=== PATIENT | female | born 1950 | race Two or more races ===

== ENCOUNTER 2024-10-12 21:35 | Inpatient (IN) | payer MEDICARE, OTHER ==
[~2024-10-12] VITALS: Ht 157.5 cm; Wt 72.6 kg
[2024-10-12] MEDS ORDERED: LATA2.5D15 EACHEYE (22:07)
[2024-10-12] MEDS ORDERED: CALC-1276 PO (22:07)
[2024-10-12] MEDS ORDERED: ZOLP5TAB2 PO (22:07)
[2024-10-12] MEDS ORDERED: QUET25TA PO (22:07)
[2024-10-12] MEDS ORDERED: SENN8.6T19 PO (22:07)
[2024-10-12] MEDS ORDERED: DICL100G31 TP (22:07)
[2024-10-12] MEDS ORDERED: ASCO500C17 PO (22:07)
[2024-10-12] MEDS ORDERED: FAMO20TA8 PO (22:07)
[2024-10-12] MEDS ORDERED: MIRT7.5T10 PO (22:07)
[2024-10-12] MEDS ORDERED: ONDA-104 PO (22:07)
[2024-10-12] MEDS ORDERED: FERR-68 PO (22:07)
[2024-10-12] MEDS ORDERED: ASPI81TA31 PO (22:07)
[2024-10-12] MEDS ORDERED: ZINC220T4 PO (22:07)
[2024-10-12] MEDS ORDERED: NALO4SPR BNOSTRILS (22:07)
[2024-10-12] MEDS ORDERED: GABA300C PO (22:07)
[2024-10-12] MEDS ORDERED: DORZ10DR10 EACHEYE (22:07)
[2024-10-12] MEDS ORDERED: ACET325T53 PO (22:07)
[2024-10-12] MEDS ORDERED: DOCU100C36 PO (22:07)
[2024-10-12] MEDS ORDERED: OXYC10TA49 PO (22:07)
[2024-10-12] MEDS ORDERED: OXYB5TAB16 PO (22:07)
[2024-10-12] MEDS ORDERED: POLY119P17 PO (22:07)
[2024-10-12 22:44] LABS: PLATELET COUNT (AUTO) 159 K/uL (179-408); RED CELL DISTRIBUTION WIDTH 15.6 % (12.3-17.7); WHITE BLOOD COUNT (AUTO) 6.4 K/uL (3.8-11.8)
[2024-10-12 22:51] LABS: RED BLOOD CELL COUNT(AUTO) 2.48 MIL/uL (3.63-4.92)
[2024-10-12 22:58] LABS: CREATININE 0.4 mg/dL (0.6-1.3); SODIUM SERUM 139 mmol/L (136-145); UREA NITROGEN, BLOOD 8 mg/dL (7-18)
[2024-10-12 23:12] LABS: ASPARTATE AMINOTRANSFERASE 34 U/L (15-37); NT-PRO BNP 1888 pg/mL (0-125); TOTAL PROTEIN, SERUM 5.8 g/dL (6.4-8.2)
[2024-10-12] MEDS: IV NORMAL SALINE 1000 ML BAG IV ONE (23:15)
[2024-10-12] MEDS ORDERED: MEROPENEM 1GM/NS 100ML IVPB **ER PYXIS ONLY IV ONE (23:17)
[2024-10-12] MEDS: MEROPENEM 1,000 MG in IV NORMAL SALINE 100 ML IV ONE (23:21)
[2024-10-13] VITALS (13 sets, daily range): BP systolic 97–150; BP diastolic 48–83; TEMP 97.2–102.4; O2SAT 89–100
[2024-10-13] MEDS ORDERED: MAGNESIUM HYDROXIDE 30 ML LIQUID UDC PO PRN (00:15)
[2024-10-13] MEDS ORDERED: REMEDY ESSENTIAL ZINC PASTE 113 GM TP PRN (00:15)
[2024-10-13] MEDS ORDERED: SENNOSIDES 1 TABLET PO PRN (00:15)
[2024-10-13] MEDS ORDERED: DEXTROSE 50% 50 ML DISP.SYRIN IV PRN ×2 (00:15→09:30)
[2024-10-13 05:09] LABS: *BILIRUBIN,URIN NEGATIVE (NEGATIVE); *BLOOD, URINE 2+ (NEGATIVE); *CLARITY,URINE CLOUDY (CLEAR); *COLOR,URINE YELLOW (YELLOW); *KETONES,URINE NEGATIVE (NEGATIVE); *PROTEIN,URINE TRACE (NEGATIVE); *UROBILINOGEN,URINE 0.2 E.U./dl (NORMAL); LEUKOCYTE ESTERASE ,URINE 3+ (NEGATIVE); NITRITE, URINE NEGATIVE (NEGATIVE); UGLUCOSE NEGATIVE (NEGATIVE)
[2024-10-13 05:10] LABS: PLATELET COUNT (AUTO) 244 K/uL (179-408); RED BLOOD CELL COUNT(AUTO) 3.19 MIL/uL (3.63-4.92); RED CELL DISTRIBUTION WIDTH 15.9 % (12.3-17.7); WHITE BLOOD COUNT (AUTO) 13.8 K/uL (3.8-11.8)
[2024-10-13 05:23] LABS: IRON, SERUM 21 ug/dL (50-175)
[2024-10-13] MEDS ORDERED: MEROPENEM 1 G in IV NORMAL SALINE 100 ML IV SCH (06:00)
[2024-10-13 06:02] LABS: SQUAMOUS EPITHELIAL CELL,UR FEW /HPF (NONE SEEN)
[2024-10-13] MEDS: HYDROMORPHONE 1 MG/1 ML DISP.SYRIN IV ONE (06:07)
[2024-10-13 06:22] LABS: CREATININE 0.6 mg/dL (0.6-1.3); SODIUM SERUM 142 mmol/L (136-145); UREA NITROGEN, BLOOD 6 mg/dL (7-18)
[2024-10-13] MEDS: ACETAMINOPHEN 325 MG TABLET PO PRN (07:43)
[2024-10-13] MEDS: INSULIN REGULAR, HUMAN 1000 UNIT/10 ML VIAL SQ PRN ×2 (07:49→17:26)
[2024-10-13] MEDS: BLOOD SUGAR DIAGNOSTIC 1 EACH STRIP VI SCH ×2 (07:52→12:00)
[2024-10-13] MEDS: VANCOMYCIN IV 1,000 MG in IV NORMAL SALINE 250 ML IV ONE (08:03)
[2024-10-13] MEDS: ACETAMINOPHEN 650 MG SUPP.RECT RC PRN (08:26)
[2024-10-13] MEDS ORDERED: DOCUSATE SODIUM 100 MG CAPSULE PO SCH (09:00)
[2024-10-13] MEDS ORDERED: ASCORBIC ACID 500 MG TABLET PO SCH (09:00)
[2024-10-13] MEDS ORDERED: ZINC SULFATE 220 MG CAPSULE PO SCH (09:00)
[2024-10-13] MEDS ORDERED: GABAPENTIN 300 MG CAPSULE PO SCH (09:00)
[2024-10-13] MEDS ORDERED: ASCORBIC ACID PO SCH (09:00)
[2024-10-13] MEDS ORDERED: QUETIAPINE FUMARATE 25 MG TABLET PO SCH (09:00)
[2024-10-13] MEDS ORDERED: CALCIUM CARB/VITAMIN D 500MG-200UNITS TABLET PO SCH (09:00)
[2024-10-13] MEDS ORDERED: OXYBUTYNIN CHLORIDE 5 MG TABLET PO SCH (09:00)
[2024-10-13] MEDS: MEROPENEM 1 G in IV NORMAL SALINE 100 ML IV SCH (09:21)
[2024-10-13 09:59] LABS: ABG BASE EXCESS 2.2 mmol/L (-2.0-3.0); ABG HCO3 25.4 mmol/L (21.0-28.0); ABG PCO2 34.1 mmHg (32.0-45.0); ABG PH 7.490 (7.350-7.450); ABG PO2 101.8 mmHg (83.0-108.0); ABG SITE RIGHT BRACHIAL; ABG TOTAL HEMOGLOBIN 9.2 G/dL (12.0-16.0); AaDO2 98.1 mmHg; FIO2 28.0 %; FLOW, BLOOD GAS 2.00 L/min (0.00-30.00)
[2024-10-13] MEDS: IV D5 1/2 NS 1000 ML 1,000 ML IV PRN (10:10)
[2024-10-13] MEDS: DORZOLAMIDE 2% OPHT DROP 10 ML BOTTLE EACHEYE SCH (10:12)
[2024-10-13] MEDS: MAGNESIUM SULFATE/D5W 100 ML IV SCH (15:00)
[2024-10-13] MEDS: LATANOPROST OPHT DROP 2.5 ML BOTTLE EACHEYE SCH (17:20)
[2024-10-13] MEDS ORDERED: MIRTAZAPINE 15 MG TABLET PO SCH (18:00)
[2024-10-13] MEDS ORDERED: FAMOTIDINE 20 MG TABLET PO SCH (21:00)
[2024-10-14] VITALS (8 sets, daily range): BP systolic 108–138; BP diastolic 52–66; TEMP 97.5–98.8; O2SAT 98–100
[2024-10-14] MEDS: VANCOMYCIN IV 1,000 MG in IV DEXTROSE 5% 250 ML IV SCH (02:27)
[2024-10-14 04:39] LABS: PLATELET COUNT (AUTO) 153 K/uL (179-408); RED BLOOD CELL COUNT(AUTO) 2.53 MIL/uL (3.63-4.92); RED CELL DISTRIBUTION WIDTH 15.6 % (12.3-17.7); WHITE BLOOD COUNT (AUTO) 8.4 K/uL (3.8-11.8)
[2024-10-14 04:57] LABS: ASPARTATE AMINOTRANSFERASE 35 U/L (15-37); CREATININE 0.3 mg/dL (0.6-1.3); SODIUM SERUM 138 mmol/L (136-145); TOTAL PROTEIN, SERUM 5.4 g/dL (6.4-8.2); UREA NITROGEN, BLOOD 5 mg/dL (7-18)
[2024-10-14] MEDS: POTASSIUM CHLORIDE 50 ML IV SCH (10:12)
[2024-10-14] MEDS: ONDANSETRON 4 MG/2 ML VIAL IV PRN (18:09)
[2024-10-14] MEDS: BISACODYL 5 MG TABLET.DR PO PRN (22:20)
[2024-10-15] VITALS (7 sets, daily range): BP systolic 116–134; BP diastolic 45–98; TEMP 98.2–99.1; O2SAT 97–100
[2024-10-15 05:07] LABS: PLATELET COUNT (AUTO) 174 K/uL (179-408); RED BLOOD CELL COUNT(AUTO) 2.73 MIL/uL (3.63-4.92); RED CELL DISTRIBUTION WIDTH 16.0 % (12.3-17.7); WHITE BLOOD COUNT (AUTO) 8.3 K/uL (3.8-11.8)
[2024-10-15 05:19] LABS: CREATININE 0.4 mg/dL (0.6-1.3); SODIUM SERUM 138 mmol/L (136-145); UREA NITROGEN, BLOOD 2 mg/dL (7-18)
[2024-10-15] MEDS ORDERED: SIMETHICONE 40 MG/0.6 ML, 30ML BOTTLE PO PRN (10:00)
[2024-10-15] MEDS: LACTULOSE 20 G/30 ML LIQUID UDC PO PRN (11:44)
[2024-10-15] MEDS ORDERED: VANCOMYCIN IV 1,000 MG in IV DEXTROSE 5% 250 ML IV SCH (14:00)
[2024-10-16 04:00] VITALS: BP 147/51; TEMP 98.9; O2SAT 100
[2024-10-16 06:59] LABS: PLATELET COUNT (AUTO) 174 K/uL (179-408); RED BLOOD CELL COUNT(AUTO) 2.77 MIL/uL (3.63-4.92); RED CELL DISTRIBUTION WIDTH 15.3 % (12.3-17.7); WHITE BLOOD COUNT (AUTO) 6.6 K/uL (3.8-11.8)
[2024-10-16 07:20] LABS: CREATININE 0.4 mg/dL (0.6-1.3); SODIUM SERUM 139 mmol/L (136-145); UREA NITROGEN, BLOOD 3 mg/dL (7-18)
[2024-10-16] MEDS: POTASSIUM CHLORIDE 20 MEQ POWDER PACKET PO ONE (10:41)
[2024-10-16] MEDS: MAGNESIUM OXIDE 400 MG TABLET PO ONE (10:42)
[2024-10-16 11:28] VITALS: BP 128/46; TEMP 97.6; O2SAT 98
[2024-10-16 16:11] VITALS: BP 109/54; TEMP 98.3; O2SAT 98
[2024-10-16] MEDS: NEUTRA PHOS PACKET PO ONE (16:11)
[2024-10-16 19:52] VITALS: BP 123/58; TEMP 98.4; O2SAT 98
[2024-10-16] MEDS: SIMETHICONE 80 MG TAB.CHEW PO PRN (21:00)
[2024-10-16] MEDS: OLANZAPINE 10 MG VIAL IM PRN (23:15)
[2024-10-17 05:00] VITALS: BP 130/54; TEMP 98.4; O2SAT 100
[2024-10-17 06:42] LABS: PLATELET COUNT (AUTO) 162 K/uL (179-408); RED BLOOD CELL COUNT(AUTO) 2.79 MIL/uL (3.63-4.92); RED CELL DISTRIBUTION WIDTH 15.4 % (12.3-17.7); WHITE BLOOD COUNT (AUTO) 5.2 K/uL (3.8-11.8)
[2024-10-17 06:56] LABS: CREATININE 0.2 mg/dL (0.6-1.3); SODIUM SERUM 140 mmol/L (136-145); UREA NITROGEN, BLOOD 4 mg/dL (7-18)
[2024-10-17] MEDS ORDERED: LEVO500T90 PO (09:24)
[2024-10-17 11:19] VITALS: BP 136/54; TEMP 98.6; O2SAT 97
== END 2024-10-17 11:59 | DRG 871 ==
LOC: ER 22:10 → CCU 10-13 00:12 → MEDSURG3 10-15 12:00
PROVIDERS: ATTEND Internal Medicine
PROC: 05HC33Z Insertion of Infusion Device into Left Basilic Vein, Percutaneous Approach (ICD-10-PCS; principal; 2024-10-13)
DX: A41.50 Gram-negative sepsis, unspecified (principal); E43 Unspecified severe protein-calorie malnutrition; G92.8 Other toxic encephalopathy; J69.0 Pneumonitis due to inhalation of food and vomit; N10 Acute pyelonephritis; N39.0 Urinary tract infection, site not specified; Z16.24 Resistance to multiple antibiotics; C22.9 Malignant neoplasm of liver, not specified as primary or secondary; J91.8 Pleural effusion in other conditions classified elsewhere; J98.11 Atelectasis; B96.89 Other specified bacterial agents as the cause of diseases classified elsewhere; R65.20 Severe sepsis without septic shock; B96.1 Klebsiella pneumoniae [K. pneumoniae] as the cause of diseases classified elsewhere; Z79.899 Other long term (current) drug therapy; Z79.82 Long term (current) use of aspirin; E11.42 Type 2 diabetes mellitus with diabetic polyneuropathy; E11.22 Type 2 diabetes mellitus with diabetic chronic kidney disease; I12.9 Hypertensive chronic kidney disease with stage 1 through stage 4 chronic kidney disease, or unspecified chronic kidney disease; K57.30 Diverticulosis of large intestine without perforation or abscess without bleeding; E88.09 Other disorders of plasma-protein metabolism, not elsewhere classified; E78.5 Hyperlipidemia, unspecified; Z86.73 Personal history of transient ischemic attack (TIA), and cerebral infarction without residual deficits; Z74.01 Bed confinement status; Z68.29 Body mass index [BMI] 29.0-29.9, adult; E66.9 Obesity, unspecified; D50.9 Iron deficiency anemia, unspecified; K74.60 Unspecified cirrhosis of liver; Z92.21 Personal history of antineoplastic chemotherapy; N18.30 Chronic kidney disease, stage 3 unspecified
CPT/HCPCS: 36415; 36600; 70450; 71045; 82746; 82803; 83550; 83605; 83735; 84100; 84443; 85025; 85730; 87040; 87077; 87086; 93005; A4606; C1758; G0378; J1171; J1815; J2185; J2358; J2405; J3370; J3475; J3480; J7040; J7042; J7050

== ENCOUNTER 2024-12-07 20:57 | Inpatient (IN) | payer MEDICARE, OTHER ==
[~2024-12-07] VITALS: Ht 157.5 cm; Wt 53.7 kg
[~2024-12-07 20:57] MED LIST: ACET325T53 PO; ASCO500C17 PO; ASPI81TA31 PO; CALC-1276 PO; DICL100G31 TP; DOCU100C36 PO; DORZ10DR10 EACHEYE; FAMO20TA8 PO; FERR-68 PO; GABA300C PO; LATA2.5D15 EACHEYE; LEVO500T90 PO; MIRT7.5T10 PO; NALO4SPR BNOSTRILS; ONDA-104 PO; OXYB5TAB16 PO; OXYC10TA49 PO; POLY119P17 PO; QUET25TA PO; SENN8.6T19 PO; ZINC220T4 PO; ZOLP5TAB2 PO
[2024-12-07 21:31] LABS: PLATELET COUNT (AUTO) 76 K/uL (179-408); RED BLOOD CELL COUNT(AUTO) 3.84 MIL/uL (3.63-4.92); RED CELL DISTRIBUTION WIDTH 13.7 % (12.3-17.7); WHITE BLOOD COUNT (AUTO) 6.5 K/uL (3.8-11.8)
[2024-12-07 21:45] LABS: *BILIRUBIN,URIN NEGATIVE (NEGATIVE); *BLOOD, URINE 1+ (NEGATIVE); *CLARITY,URINE CLOUDY (CLEAR); *COLOR,URINE YELLOW (YELLOW); *KETONES,URINE NEGATIVE (NEGATIVE); *PROTEIN,URINE 1+ (NEGATIVE); *UROBILINOGEN,URINE 0.2 E.U./dl (NORMAL); LEUKOCYTE ESTERASE ,URINE 1+ (NEGATIVE); NITRITE, URINE POSITIVE (NEGATIVE); UGLUCOSE 2+ (NEGATIVE)
[2024-12-07] MEDS ORDERED: CEFT1VIA15 IV (21:48)
[2024-12-07] MEDS ORDERED: BISA10SU61 RC (21:48)
[2024-12-07] MEDS ORDERED: NA P133E8 RC (21:48)
[2024-12-07 21:50] LABS: ASPARTATE AMINOTRANSFERASE 23 U/L (15-37); CREATININE 1.0 mg/dL (0.6-1.3); SODIUM SERUM 129 mmol/L (136-145); TOTAL PROTEIN, SERUM 7.3 g/dL (6.4-8.2); UREA NITROGEN, BLOOD 30 mg/dL (7-18)
[2024-12-07 21:52] LABS: LACTIC ACID 2.9 mmol/L (0.4-2.0)
[2024-12-07 21:55] LABS: SQUAMOUS EPITHELIAL CELL,UR FEW /HPF (NONE SEEN)
[2024-12-07] MEDS: CEFEPIME (MAXEPIME) 1 G in IV DEXTROSE 5% 50 ML IV ONE (21:59)
[2024-12-07] MEDS: IV LACTATED RINGERS SOLUTION 1,000 ML BAG IV ONE (21:59)
[2024-12-07] MEDS ORDERED: CEFEPIME HCL 1 G VIAL ONE (21:59)
[2024-12-07] MEDS ORDERED: NOREPINEPHRINE 8MG/NS 250ML 250 ML IV ONE (23:02)
[2024-12-07] MEDS: NOREPINEPHRINE 8MG/NS 250ML 250 ML IV ONE (23:18)
[2024-12-08] VITALS (84 sets, daily range): BP systolic 82–162; BP diastolic 44–78; TEMP 97.8–98.8; O2SAT 96–100
[2024-12-08] MEDS ORDERED: VANCOMYCIN IV 200 ML ONE (00:01)
[2024-12-08] MEDS: VANCOMYCIN IV 1,000 MG in IV DEXTROSE 5% 250 ML IV ONE (00:11)
[2024-12-08 00:14] LABS: CREATININE 0.9 mg/dL (0.6-1.3); SODIUM SERUM 131 mmol/L (136-145); UREA NITROGEN, BLOOD 28 mg/dL (7-18)
[2024-12-08] MEDS: ONDANSETRON 4 MG/2 ML VIAL IV ONE (00:30)
[2024-12-08] MEDS: MORPHINE SULFATE 2 MG/1 ML DISP.SYRIN IV ONE (00:30)
[2024-12-08] MEDS: IV LACTATED RINGERS SOLUTION 1,000 ML BAG IV ONE (00:41)
[2024-12-08] MEDS ORDERED: CEFEPIME (MAXEPIME) 2 G in IV DEXTROSE 5% 100 ML IV SCH (01:30)
[2024-12-08] MEDS ORDERED: DEXTROSE 50% 50 ML DISP.SYRIN IV PRN (02:00)
[2024-12-08] MEDS ORDERED: IOHEXOL 300MG/ML 100 ML INFUS..BTL ONE (02:49)
[2024-12-08] MEDS ORDERED: SWABABLE VALVE TRANSFER SET EA MC ONE (02:49)
[2024-12-08] MEDS ORDERED: IV NORMAL SALINE 250 ML IV ONE (02:50)
[2024-12-08 03:07] LABS: CREATININE 1.0 mg/dL (0.6-1.3); SODIUM SERUM 129 mmol/L (136-145); UREA NITROGEN, BLOOD 24 mg/dL (7-18)
[2024-12-08] MEDS ORDERED: CEFEPIME HCL 2 GM in IV DEXTROSE 5% 100 ML IV SCH (03:30)
[2024-12-08] MEDS: BLOOD SUGAR DIAGNOSTIC 1 EACH STRIP VI SCH (03:40)
[2024-12-08] MEDS: IV NS 1000 ML 1,000 ML IV SCH (04:00)
[2024-12-08 04:19] LABS: PLATELET COUNT (AUTO) 86 K/uL (179-408); RED BLOOD CELL COUNT(AUTO) 3.52 MIL/uL (3.63-4.92); RED CELL DISTRIBUTION WIDTH 13.6 % (12.3-17.7); WHITE BLOOD COUNT (AUTO) 9.5 K/uL (3.8-11.8)
[2024-12-08] MEDS ORDERED: INSULIN REGULAR, HUMAN 1000 UNIT/10 ML VIAL ONE (04:44)
[2024-12-08] MEDS: NOREPINEPHRINE BITARTRATE 8 MG in IV NORMAL SALINE 250 ML IV PRN (07:15)
[2024-12-08] MEDS: QUETIAPINE FUMARATE 25 MG TABLET PO SCH (09:19)
[2024-12-08] MEDS: ASCORBIC ACID 500 MG TABLET PO SCH (09:19)
[2024-12-08] MEDS: PANTOPRAZOLE SODIUM 40 MG TABLET.DR PO SCH (09:19)
[2024-12-08] MEDS: FERROUS SULFATE 325 MG TABEC PO SCH (09:19)
[2024-12-08] MEDS: GABAPENTIN 300 MG CAPSULE PO SCH (09:20)
[2024-12-08] MEDS: OXYBUTYNIN CHLORIDE 5 MG TABLET PO SCH (09:23)
[2024-12-08] MEDS: CALCIUM CARB/VITAMIN D 500MG-200UNITS TABLET PO SCH (09:24)
[2024-12-08] MEDS: DORZOLAMIDE 2% OPHT DROP 10 ML BOTTLE EACHEYE SCH (09:25)
[2024-12-08] MEDS: INSULIN REGULAR, HUMAN 1000 UNIT/10 ML VIAL SQ PRN (09:38)
[2024-12-08] MEDS: CEFEPIME HCL 2 GM in IV DEXTROSE 5% 100 ML IV SCH (09:41)
[2024-12-08] MEDS: MAGNESIUM OXIDE 400 MG TABLET PO ONE (14:45)
[2024-12-08 15:18] LABS: *BILIRUBIN,URIN NEGATIVE (NEGATIVE); *CLARITY,URINE CLEAR (CLEAR); *COLOR,URINE YELLOW (YELLOW); *KETONES,URINE NEGATIVE (NEGATIVE); *PROTEIN,URINE NEGATIVE (NEGATIVE); *UROBILINOGEN,URINE 0.2 E.U./dl (NORMAL); LEUKOCYTE ESTERASE ,URINE 1+ (NEGATIVE); NITRITE, URINE NEGATIVE (NEGATIVE); UGLUCOSE TRACE (NEGATIVE)
[2024-12-08 15:19] LABS: *BLOOD, URINE TRACE (NEGATIVE)
[2024-12-08 15:20] LABS: SQUAMOUS EPITHELIAL CELL,UR FEW /HPF (NONE SEEN)
[2024-12-08 15:26] LABS: *CREATININE,URINE < 13.0 mg/dL (30-125); *SODIUM RNDM,URINE 56 mmol/L (40-220); *URINE TOTAL PROTEIN RANDOM 18.3 mg/dL (<150/24HR)
[2024-12-08] MEDS ORDERED: CEFEPIME HCL 1 G VIAL IM SCH (21:00)
[2024-12-08] MEDS ORDERED: LATANOPROST OPHT DROP 2.5 ML BOTTLE EACHEYE SCH (21:00)
[2024-12-08] MEDS: MIRTAZAPINE 15 MG TABLET PO SCH (21:02)
[2024-12-08] MEDS: LATANOPROST OPHT DROP 2.5 ML BOTTLE EACHEYE SCH (21:23)
[2024-12-08] MEDS: DOCUSATE SODIUM 100 MG CAPSULE PO SCH (21:35)
[2024-12-08] MEDS: CEFEPIME (MAXEPIME) 1 G in IV DEXTROSE 5% 50 ML IV ONE (21:46)
[2024-12-09] VITALS (60 sets, daily range): BP systolic 95–140; BP diastolic 46–91; TEMP 97.2–98.6; O2SAT 96–100
[2024-12-09] MEDS ORDERED: VANCOMYCIN IV 1,000 MG in IV DEXTROSE 5% 250 ML IV SCH
[2024-12-09] MEDS: VANCOMYCIN IV 1,000 MG in IV DEXTROSE 5% 250 ML IV SCH (02:58)
[2024-12-09 05:08] LABS: HEPATITIS B CORE AB, IgM Negative (Negative); HEPATITIS B CORE AB, TOTAL Negative (Negative); HEPATITIS B SURFACE AB, QUAL Non Reactive (.); HEPATITIS B SURFACE AG Negative (Negative); HEPATITIS C VIRUS ANTIBODY Non Reactive (Non Reactive)
[2024-12-09 05:41] LABS: ASPARTATE AMINOTRANSFERASE 17 U/L (15-37); CREATININE 0.4 mg/dL (0.6-1.3); SODIUM SERUM 140 mmol/L (136-145); TOTAL PROTEIN, SERUM 5.7 g/dL (6.4-8.2); UREA NITROGEN, BLOOD 12 mg/dL (7-18)
[2024-12-09] MEDS: POTASSIUM CHLORIDE 50 ML IV SCH (08:17)
[2024-12-09] MEDS: CALCIUM CARB/VITAMIN D 500MG-200UNITS TABLET PO SCH (08:24)
[2024-12-09] MEDS: CEFEPIME (MAXEPIME) 1 G in IV DEXTROSE 5% 50 ML IV SCH (11:25)
[2024-12-09] MEDS: VANCOMYCIN HCL 750 MG in IV DEXTROSE 5% 250 ML IV SCH (17:57)
[2024-12-09] MEDS: MORPHINE SULFATE 2 MG/1 ML DISP.SYRIN IV PRN (19:59)
[2024-12-09] MEDS: QUETIAPINE FUMARATE 25 MG TABLET PO SCH (21:34)
[2024-12-10] VITALS (21 sets, daily range): BP systolic 98–146; BP diastolic 46–68; TEMP 97.6–97.9; O2SAT 72–100
[2024-12-10 04:59] LABS: PLATELET COUNT (AUTO) 80 K/uL (179-408); RED BLOOD CELL COUNT(AUTO) 3.27 MIL/uL (3.63-4.92); RED CELL DISTRIBUTION WIDTH 13.6 % (12.3-17.7); WHITE BLOOD COUNT (AUTO) 3.0 K/uL (3.8-11.8)
[2024-12-10 05:20] LABS: ASPARTATE AMINOTRANSFERASE 17 U/L (15-37); CREATININE 0.4 mg/dL (0.6-1.3); SODIUM SERUM 145 mmol/L (136-145); TOTAL PROTEIN, SERUM 5.8 g/dL (6.4-8.2); UREA NITROGEN, BLOOD 9 mg/dL (7-18)
[2024-12-10 05:57] LABS: BASOPHILS % (MANUAL) 1 % (0-2); EOSINOPHILS % (MANUAL) 3 % (0-8); LYMPHOCYTES % (MANUAL) 23 % (20-40); MONOCYTES % (MANUAL) 12 % (2-10); NEUTROPHILS % (MANUAL) 61 % (42-75)
[2024-12-10 05:58] LABS: PLATELET ESTIMATE DECREASED
[2024-12-10] MEDS: POTASSIUM CHLORIDE 20 MEQ POWDER PACKET PO ONE (11:15)
[2024-12-10] MEDS: MAGNESIUM OXIDE 400 MG TABLET PO ONE (11:15)
[2024-12-10 19:06] LABS: *HCV QUANT HCV Not Detected IU/mL (.)
[2024-12-11] MEDS ORDERED: ACETAMINOPHEN 325 MG TABLET PO PRN (00:30)
[2024-12-11 07:54] VITALS: BP 140/50; TEMP 97.9; O2SAT 100
[2024-12-11 11:46] VITALS: BP 157/49; TEMP 97.6; O2SAT 100
[2024-12-11 15:46] VITALS: BP 156/66; TEMP 97.8; O2SAT 100
[2024-12-11] MEDS: BISACODYL 10 MG SUPP.RECT RC PRN (16:58)
[2024-12-11 19:00] VITALS: BP 147/45; TEMP 98.4; O2SAT 98
[2024-12-12] MEDS ORDERED: CEFEPIME HCL 1 G VIAL ONE (03:51)
[2024-12-12 06:00] VITALS: BP 145/62; TEMP 98.1; O2SAT 99
[2024-12-12] MEDS: NITROFURANTOIN/NITROFURAN MAC 100 MG CAPSULE PO SCH (09:51)
[2024-12-12] MEDS ORDERED: NITR100C11 PO (15:04)
[2024-12-12] MEDS ORDERED: FAMO10TA41 PO (15:04)
[2024-12-12] MEDS ORDERED: ACET325T53 PO (15:04)
[2024-12-12] MEDS ORDERED: GABA100C PO (15:04)
[2024-12-12] MEDS ORDERED: GLIP5TAB13 PO (15:04)
[2024-12-12] MEDS ORDERED: AMLO5TAB4 PO (15:05)
== END 2024-12-12 19:00 | DRG 871 ==
LOC: ER 20:59 → CCU 12-08 00:30 → TELE3 12-10 15:14 → UNDODISIN 12-10 15:15 → MEDSURG3 12-11 08:20
PROVIDERS: ADMIT Registered Nurse Psychiatric/Mental Health; ATTEND Registered Nurse Psychiatric/Mental Health
PROC: 05HB33Z Insertion of Infusion Device into Right Basilic Vein, Percutaneous Approach (ICD-10-PCS; principal; 2024-12-08)
PROC: 05HB33Z Insertion of Infusion Device into Right Basilic Vein, Percutaneous Approach (ICD-10-PCS; 2024-12-08)
DX: A41.51 Sepsis due to Escherichia coli [E. coli] (principal); E43 Unspecified severe protein-calorie malnutrition; G92.8 Other toxic encephalopathy; R65.21 Severe sepsis with septic shock; E44.0 Moderate protein-calorie malnutrition; N39.0 Urinary tract infection, site not specified; C22.9 Malignant neoplasm of liver, not specified as primary or secondary; I47.19 Other supraventricular tachycardia; E87.1 Hypo-osmolality and hyponatremia; N82.4 Other female intestinal-genital tract fistulae; E87.20 Acidosis, unspecified; A41.59 Other Gram-negative sepsis; E11.65 Type 2 diabetes mellitus with hyperglycemia; L89.156 Pressure-induced deep tissue damage of sacral region; K76.82 Hepatic encephalopathy; K72.10 Chronic hepatic failure without coma; Z92.21 Personal history of antineoplastic chemotherapy; E78.5 Hyperlipidemia, unspecified; B96.1 Klebsiella pneumoniae [K. pneumoniae] as the cause of diseases classified elsewhere; K21.9 Gastro-esophageal reflux disease without esophagitis; E88.09 Other disorders of plasma-protein metabolism, not elsewhere classified; K56.41 Fecal impaction; K57.30 Diverticulosis of large intestine without perforation or abscess without bleeding; R09.89 Other specified symptoms and signs involving the circulatory and respiratory systems; H40.9 Unspecified glaucoma; D50.9 Iron deficiency anemia, unspecified; G31.84 Mild cognitive impairment of uncertain or unknown etiology; E11.42 Type 2 diabetes mellitus with diabetic polyneuropathy; L85.3 Xerosis cutis; Z79.82 Long term (current) use of aspirin; Z79.899 Other long term (current) drug therapy; I12.9 Hypertensive chronic kidney disease with stage 1 through stage 4 chronic kidney disease, or unspecified chronic kidney disease; N18.30 Chronic kidney disease, stage 3 unspecified; D69.6 Thrombocytopenia, unspecified; E11.22 Type 2 diabetes mellitus with diabetic chronic kidney disease; Z68.21 Body mass index [BMI] 21.0-21.9, adult
CPT/HCPCS: 36415; 70030-TC; 71045; 74160; 82105; 82533; 83605; 83735; 84100; 84300; 84443; 84484; 84550; 85025; 85730; 86704; 86705; 86706; 86803; 87040; 87077; 87086; 87340; 87350; 87521; 93307; A4606; A4663; A6213; G0378; J0692; J1815; J2270; J3373; J3480; J7040; J7050; J7120; Q9967